=== PATIENT | female | born 1970 | race Caucasian/White ===

== ENCOUNTER 2017-09-16 21:35 | Emergency (ER) | payer SELFPAY ==
[~2017-09-16] VITALS: Ht 154.9 cm; Wt 61.2 kg
[2017-09-16 22:00] VITALS: BP 156/83
--- NOTE | 2017-09-16 22:16 | PHYS DOC ---
Past Medical History Past Medical History: Anxiety, Asthma, Bronchitis, Diabetes-Type II, High Cholesterol, Other Additional Past Medical Histor: ADHD Past Surgical History: Other Additional Past Surgical Histo: CARPAL TUNNEL RELEASES Alcohol Use: None Drug Use: None Adult General Chief Complaint Chief Complaint: ANKLE PROBLEM HPI HPI Patient is a 46 year old female presents to the emergency department with complaints of left foot pain. Patient states that she misstepped on some concrete and describes an inversion to the ankle. She states that for 8 days she has experienced pain and bruising in the distal foot. She's here today seeking evaluation. She does arrive to the emergency department fully weight- bearing. Review of Systems Review of Systems Constitutional: Denies fever or chills [] Eyes: Denies change in visual acuity, redness, or eye pain [] HENT: Denies nasal congestion or sore throat [] Respiratory: Denies cough or shortness of breath [] Cardiovascular: No additional information not addressed in HPI [] GI: Denies abdominal pain, nausea, vomiting, bloody stools or diarrhea [] : Denies dysuria or hematuria [] Musculoskeletal: left foot pain Integument: Denies rash or skin lesions [] Neurologic: Denies headache, focal weakness or sensory changes [] Endocrine: Denies polyuria or polydipsia [] Allergies Allergies Allergies Coded Allergies Type Severity Reaction Last Updated Verified No Known Drug Allergies 02/20/14 No Physical Exam Physical Exam Constitutional: Well developed, well nourished, no acute distress, non-toxic appearance. [] Cardiovascular:Heart rate regular rhythm, no murmur [] Lungs & Thorax: Bilateral breath sounds clear to auscultation [] Skin: Warm, dry, no erythema, no rash. [] Back: No tenderness, no CVA tenderness. [] Extremities:LLE: Left knee exam unremarkable. Left ankle without swelling without ecchymosis. She is mildly tender to palpate over the Achilles tendon which is intact. Left foot exam distal ecchymosis with diffuse tenderness. No obvious deformity. Neurovascular intact distally. Neurologic: Alert and oriented X 3, normal motor function, normal sensory function, no focal deficits noted. [] Psychologic: Affect normal, judgement normal, mood normal. [] Current Patient Data Vital Signs Vital Signs Date Time Temp Pulse Resp B/P (MAP) Pulse Ox O2 Delivery O2 Flow Rate FiO2 09/16/17 22:00 97.8 84 20 156/83 (107) 98 Room Air 97.8 EKG EKG [] Radiology/Procedures Radiology/Procedures Left Ankle x-ray without bony abnormality. Left Foot x-ray with fracture at the base of the fifth metatarsal, minimally displaced. Course & Med Decision Making Course & Med Decision Making Pertinent Labs and Imaging studies reviewed. (See chart for details) []She was placed in a postop shoe, crutches for weightbearing as tolerated. The injury is approximately 8-9 days old according to patient's history, she may utilize ibuprofen [id number] as labeled and is indicated for symptom management. She is advised to follow-up with surgical asst in 3-5 days. Dragon Disclaimer Dragon Disclaimer This electronic medical record was generated, in whole or in part, using a voice recognition dictation system. Departure Departure Impression: Primary Impression: Foot fracture, left Disposition: 01 HOME, SELF-CARE Condition: STABLE Referrals: NO PCP (PCP) [facility] Patient Instructions: Foot Fracture Additional Instructions: Crutches for weightbearing as tolerated. Postop shoe, please wear when ambulating. Follow-up with podiatry in 3-5 days, call for appointment. He may use [id number] ibuprofen or Naprosyn as labeled and is indicated for symptom management. Problem Qualifiers Primary Impression: Foot fracture, left Encounter type: initial encounter Fracture type: closed Qualified Codes: S92.902A - Unspecified fracture of left foot, initial encounter for closed fracture YOAN [place] APRN Sep 16, 2017 22:16
--- NOTE | 2017-09-17 09:05 | RAD ---
Left foot, 3 views, 09/16/2017: History: Fall, pain There is a transverse fracture of the proximal fifth metatarsal with slight distraction of the fracture fragments at the fracture site. No other fracture or dislocation is identified. There are mild degenerative changes at the first MTP joint IMPRESSION: Acute fracture of the proximal fifth metatarsal. Left ankle, 3 views, 09/16/2017: No additional fracture or dislocation is identified. There is mild soft tissue swelling laterally. IMPRESSION: No additional fracture is detected. Note: The findings were called to personnel in the [facility] ER at 9:01 AM on 09/17/2017.
== END 2017-09-16 22:50 | disposition home or self-care (01) ==
LOC: ER 21:35
DX: S92.352A Displaced fracture of fifth metatarsal bone, left foot, initial encounter for closed fracture (principal); F41.9 Anxiety disorder, unspecified; J45.909 Unspecified asthma, uncomplicated; E11.9 Type 2 diabetes mellitus without complications; E78.00 Pure hypercholesterolemia, unspecified; F90.9 Attention-deficit hyperactivity disorder, unspecified type; X58.XXXA Exposure to other specified factors, initial encounter; Y93.89 Activity, other specified; Y92.89 Other specified places as the place of occurrence of the external cause; Y99.8 Other external cause status
CPT/HCPCS: 73610; 73630; 99284

== ENCOUNTER 2020-05-21 21:17 | Observation (INO) | payer MEDICAID, OTHER ==
[~2020-05-21] VITALS: Ht 154.9 cm; Wt 61.2 kg
[2020-05-21] MEDS ORDERED: SIMETHICONE/SOD BICARB/CITRIC ACID PACKET. PO ONE (21:45)
--- NOTE | 2020-05-21 21:51 | PHYS DOC ---
Past Medical History Past Medical History: Anxiety, Asthma, Bronchitis, Diabetes-Type II, Fibr omyalgia, High Cholesterol, Other Additional Past Medical Histor: ADHD, NARROW ESOPHAGUS Past Surgical History: Other Additional Past Surgical Histo: CARPAL TUNNEL RELEASES Smoking Status: Current Every Day Smoker Alcohol Use: None Drug Use: None General Adult EDM: Chief Complaint: OTHER COMPLAINTS HPI: HPI: 49-year-old female past medical history esophageal food bolus presents with chief complaint of esophageal food bolus. Patient eating dinner prior to arrival suddenly unable to swallow. Patient was eating Nepali food beef with broccoli. Last obstruction was approximately 10 years ago. On exam patient spitting up saliva. Review of Systems: Review of Systems: Constitutional: Denies fever or chills. [] Eyes: Denies change in visual acuity. [] HENT: Denies nasal congestion or sore throat. [] Respiratory: Denies cough or shortness of breath. [] Cardiovascular: Denies chest pain or edema. [] GI: Positive esophageal food bolus : Denies dysuria. [] Musculoskeletal: Denies back pain or joint pain. [] Integument: Denies rash. [] Neurologic: Denies headache, focal weakness or sensory changes. [] Endocrine: Denies polyuria or polydipsia. [] Lymphatic: Denies swollen glands. [] Psychiatric: Denies depression or anxiety. [] Heart Score: Risk Factors: Risk Factors: DM, Current or recent (<one month) smoker, HTN, HLP, family h istory of CAD, obesity. Risk Scores: Score 0 - 3: 2.5% MACE over next 6 weeks - Discharge Home Score 4 - 6: 20.3% MACE over next 6 weeks - Admit for Clinical Observation Score 7 - 10: 72.7% MACE over next 6 weeks - Early Invasive Strategies Current Medications: Current Medications Medications (Trade) Dose Ordered Sig/Jessica Start Time Stop Time Status Last Admin Dose Admin Lorazepam (Ativan Inj) 1 mg 1X ONCE 05/21/20 21:45 05/21/20 21:46 UNV Simethicone/ Sodium Bicarb/ Citric Ac (E-Z-Gas) 1 packet 1X ONCE 05/21/20 21:45 05/21/20 21:46 DC 05/21/20 21:42 1 PACKET Allergies: Allergies: Allergies Coded Allergies Type Severity Reaction Last Updated Verified No Known Drug Allergies 02/20/14 No Physical Exam: PE: Constitutional: Well developed, well nourished, no acute distress, non-toxic appearance. [] HENT: Normocephalic, atraumatic, bilateral external ears normal, oropharynx moist, no oral exudates, nose normal. [] Eyes: PERRLA, EOMI, conjunctiva normal, no discharge. [] Neck: Normal range of motion, no tenderness, supple, no stridor. [] Cardiovascular:Heart rate regular rhythm, no murmur [] Lungs & Thorax: Bilateral breath sounds clear to auscultation [] Abdomen: Bowel sounds normal, soft, no tenderness, no masses, no pulsatile masses. [] Skin: Warm, dry, no erythema, no rash. [] Back: No tenderness, no CVA tenderness. [] Extremities: No tenderness, no cyanosis, no clubbing, ROM intact, no edema. [] Neurologic: Alert and oriented X 3, normal motor function, normal sensory function, no focal deficits noted. [] Psychologic: Affect normal, judgement normal, mood normal. [] Current Patient Data: Vital Signs: Vital Signs Date Time Temp Pulse Resp B/P (MAP) Pulse Ox O2 Delivery O2 Flow Rate FiO2 05/21/20 21:20 97.6 100 22 127/92 (104) 97 Room Air 97.6 EKG: EKG: [] Radiology/Procedures: Radiology/Procedures: [] Course & Med Decision Making: Course & Med Decision Making Pertinent Labs and Imaging studies reviewed. (See chart for details) [] Patient was evaluated for chief complaint. Patient was initially treated with EZ gas. Patient drank unable to tolerate.. Patient stated Valium had worked in the past. Formulary Valium here at [place] is only p.o. Used Ativan 1 mg initially with no improvement repeat dosed Ativan 2 mg again with no improvement. Patient also received glucagon 1 mg with no improvement. Second attempt with easy gas used and unsuccessful. Patient seems to be improved. She is not spitting up as much saliva compared to previous exam. Patient did tolerate sips of water without vomiting. Despite perceived improvements patient continues to states sensation of esophageal foreign body. Discussed patient with Dr Plummer @ 2320hrs. Patient admitted to the hospitalist. Chirag Disclaimer: Chirag Disclaimer: This electronic medical record was generated, in whole or in part, using a voice recognition dictation system. Departure Departure Impression: Primary Impression: Esophageal obstruction due to food impaction Disposition: ADMITTED INPATIENT Admitting Physician: BHANU Condition: STABLE Referrals: NO PCP (PCP) Justicifation of Admission Dx: Justifications for Admission: Justification of Admission Dx: Yes Comments: Esophageal foreign body ADALID MUNOZ I DO May 21, 2020 21:51
[2020-05-21] MEDS ORDERED: GLUCAGON,HUMAN RECOMBINANT 1 MG/ML VIAL. IV ONE (22:45)
[2020-05-21] MEDS ORDERED: ONDANSETRON PF 4 MG/2 ML VIAL. IV PRN (23:45)
[2020-05-22] VITALS (8 sets, daily range): BP systolic 93–119; BP diastolic 61–81
[2020-05-22] MEDS ORDERED: MORPHINE SULFATE 4 MG/ML VIAL. IV ONE (00:15)
[2020-05-22] MEDS ORDERED: MORPHINE SULFATE 4 MG/ML VIAL. ONE (00:22)
[2020-05-22 00:25] LABS: BASO % 1 % (0-3); EOS # 0.2 x10^3/uL (0.0-0.7); EOS % 2 % (0-3); HEMATOCRIT 41.7 % (36.0-47.0); HEMOGLOBIN 14.5 g/dL (12.0-15.5); LYMPH # 2.7 x10^3/uL (1.0-4.8); LYMPH % 36 % (24-48); MEAN CORPUSCULAR HEMOGLOBIN 33 pg (25-35); MEAN CORPUSCULAR HGB CONC 35 g/dL (31-37); MEAN CORPUSCULAR VOLUME 95 fL (79-100); MONO # 0.5 x10^3/uL (0.0-1.1); MONO % 6 % (0-9); NEUT % 55 % (31-73); PLATELET COUNT 422 x10^3/uL (140-400); RED CELL DISTRIBUTION WIDTH 11.8 % (11.5-14.5); WHITE BLOOD COUNT 7.4 x10^3/uL (4.0-11.0)
[2020-05-22 00:32] LABS: CALCIUM 9.5 mg/dL (8.5-10.1); CREATININE 0.8 mg/dL (0.6-1.0); GFR 75.9
--- NOTE | 2020-05-22 00:40 | NUR ---
Admit from ER. c/o pain between breasts, "that's where the beef and broccoli is stuck." Talking full sentences w/o dyspnea. Home meds are vague (Tylenol pm, Nortriptyline, Metformin, Atorvastatin and a blood pressure pill). Chart reports no PCP.
[2020-05-22 05:06] LABS: BASO % 0 % (0-3); EOS # 0.2 x10^3/uL (0.0-0.7); EOS % 3 % (0-3); HEMATOCRIT 38.3 % (36.0-47.0); HEMOGLOBIN 13.3 g/dL (12.0-15.5); LYMPH # 2.6 x10^3/uL (1.0-4.8); LYMPH % 35 % (24-48); MEAN CORPUSCULAR HEMOGLOBIN 33 pg (25-35); MEAN CORPUSCULAR HGB CONC 35 g/dL (31-37); MEAN CORPUSCULAR VOLUME 95 fL (79-100); MONO # 0.5 x10^3/uL (0.0-1.1); MONO % 7 % (0-9); NEUT # 4.2 x10^3/uL (1.8-7.7); NEUT % 56 % (31-73); PLATELET COUNT 342 x10^3/uL (140-400); RED BLOOD COUNT 4.04 x10^6/uL (3.50-5.40); RED CELL DISTRIBUTION WIDTH 12.1 % (11.5-14.5); WHITE BLOOD COUNT 7.6 x10^3/uL (4.0-11.0)
[2020-05-22 06:19] LABS: CALCIUM 8.9 mg/dL (8.5-10.1); CREATININE 0.7 mg/dL (0.6-1.0); GFR 88.6; POTASSIUM 3.9 mmol/L (3.5-5.1)
--- NOTE | 2020-05-22 08:30 | NUR ---
Outpatient by w/c for EGD.
[2020-05-22] MEDS ORDERED: PROPOFOL 10 MG/ML (20ML) VIAL. IV ONE (08:51)
[2020-05-22] MEDS ORDERED: LIDOCAINE 2% PF 5 ML VIAL. ONE (08:51)
--- NOTE | 2020-05-22 08:52 | PDOC2 ---
GI CONSULT Reason For Consult: esophageal food bolus HPI: HPI: 49 y/o female admitted through ER. Eating beef and broccoli last night around 8:00 p.m. - food got stuck in mid throat. Eventually able to cough that up but still feels like something stuck in epigastrium. At first unable to tolerate secretions but better now. H/o GERD long ago, now has "hiatal hernia" flares and takes Roz Millwood w/ melantonin PRN. Does not have frequent dysphagia - "just sometimes" with food. Had EGD ~10 years ago (can't remember where - ?[facility]) and was told "narrow esophagus" but no intervention or medication suggested. No n/v, diarrhea, constipation, or bleeding. Has gained a little weight w/ DM medication. No previous colonoscopy. No GB, liver, pancreas, or PUD history. No NSAIDs. Says supposed to get her health insurance card today. PMH: PMH: DM, HLD, asthma, bronchitis, ADHD, anxiety, DDD, GERD, hiatal hernia bilateral CTR and elbow surgeries FH: Family History: Other (spinal problems) Social History: Smoke: Quit ALCOHOL: occassional Drugs: None ROS: GEN: Denies fevers, chills, sweats HEENT: Denies blurred vision, sore throat CV: Denies chest pain RESP: Denies shortness of air, cough GI: Per HPI : Denies hematuria, dysuria ENDO: +weight gain NEURO: Denies confusion, dizziness MSK: Denies weakness, joint pain/swelling SKIN: Denies jaundice, pruritus Vitals: Vitals: Vital Signs Date Time Temp Pulse Resp B/P (MAP) Pulse Ox O2 Delivery O2 Flow Rate FiO2 05/22/20 07:15 98.1 88 18 96/71 (79) 98 Room Air 98.1 Labs: Labs: Laboratory Tests Test 05/21/20 19:30 05/22/20 04:15 White Blood Count 7.4 x10^3/uL (4.0-11.0) 7.6 x10^3/uL (4.0-11.0) Red Blood Count 4.40 x10^6/uL (3.50-5.40) 4.04 x10^6/uL (3.50-5.40) Hemoglobin 14.5 g/dL (12.0-15.5) 13.3 g/dL (12.0-15.5) Hematocrit 41.7 % (36.0-47.0) 38.3 % (36.0-47.0) Mean Corpuscular Volume 95 fL (79-100) 95 fL (79-100) Mean Corpuscular Hemoglobin 33 pg (25-35) 33 pg (25-35) Mean Corpuscular Hemoglobin Concent 35 g/dL (31-37) 35 g/dL (31-37) Red Cell Distribution Width 11.8 % (11.5-14.5) 12.1 % (11.5-14.5) Platelet Count 422 x10^3/uL (140-400) 342 x10^3/uL (140-400) Neutrophils (%) (Auto) 55 % (31-73) 56 % (31-73) Lymphocytes (%) (Auto) 36 % (24-48) 35 % (24-48) Monocytes (%) (Auto) 6 % (0-9) 7 % (0-9) Eosinophils (%) (Auto) 2 % (0-3) 3 % (0-3) Basophils (%) (Auto) 1 % (0-3) 0 % (0-3) Neutrophils # (Auto) 4.0 x10^3/uL (1.8-7.7) 4.2 x10^3/uL (1.8-7.7) Lymphocytes # (Auto) 2.7 x10^3/uL (1.0-4.8) 2.6 x10^3/uL (1.0-4.8) Monocytes # (Auto) 0.5 x10^3/uL (0.0-1.1) 0.5 x10^3/uL (0.0-1.1) Eosinophils # (Auto) 0.2 x10^3/uL (0.0-0.7) 0.2 x10^3/uL (0.0-0.7) Basophils # (Auto) 0.0 x10^3/uL (0.0-0.2) 0.0 x10^3/uL (0.0-0.2) Sodium Level 141 mmol/L (136-145) 141 mmol/L (136-145) Potassium Level 4.0 mmol/L (3.5-5.1) 3.9 mmol/L (3.5-5.1) Chloride Level 101 mmol/L (98-107) 103 mmol/L (98-107) Carbon Dioxide Level 29 mmol/L (21-32) 27 mmol/L (21-32) Anion Gap 11 (6-14) 11 (6-14) Blood Urea Nitrogen 12 mg/dL (7-20) 13 mg/dL (7-20) Creatinine 0.8 mg/dL (0.6-1.0) 0.7 mg/dL (0.6-1.0) Estimated GFR (Cockcroft-Gault) 75.9 88.6 Glucose Level 142 mg/dL (70-99) 113 mg/dL (70-99) Calcium Level 9.5 mg/dL (8.5-10.1) 8.9 mg/dL (8.5-10.1) Allergies: Coded Allergies: No Known Drug Allergies (Unverified , 02/20/14) Medications: Current Medications Medications (Trade) Dose Ordered Sig/Jessica Route PRN Reason Start Time Stop Time Status Last Admin Dose Admin Simethicone/ Sodium Bicarb/ Citric Ac (E-Z-Gas) 1 packet 1X ONCE PO 05/21/20 21:45 05/21/20 21:46 DC 05/21/20 21:42 Lorazepam (Ativan Inj) 1 mg 1X ONCE IVP 05/21/20 21:45 05/21/20 22:01 DC 05/21/20 21:54 Glucagon (Glucagen) 1 mg 1X ONCE IV 05/21/20 22:45 05/21/20 22:46 DC 05/21/20 22:40 Lorazepam (Ativan Inj) 2 mg 1X ONCE IVP 05/21/20 22:45 05/21/20 22:46 DC 05/21/20 22:40 Ondansetron HCl (Zofran) 4 mg PRN Q8HRS PRN IV NAUSEA/VOMITING 05/21/20 23:45 05/22/20 23:44 05/22/20 00:23 Morphine Sulfate (Morphine Sulfate) 4 mg 1X ONCE IV 05/22/20 00:15 05/22/20 00:51 DC 7/1/20 00:24 Imaging: Imaging: - PE: GEN: NAD HEENT: Atraumatic, PERRL LUNGS: CTAB HEART: RRR ABD: NABS, S/ND, epigastric discomfort EXTREMITY: No edema SKIN: No rashes, no jaundice NEURO/PSYCH: A & O 3 A/P: A/P: Food bolus, epigastric discomfort, globus GERD, h/o dysphagia CRC screen - none -- EGD w/ possible disimpaction/dilation this morning. PPI. Outpt screening colonoscopy. ALLA MIJARES May 22, 2020 08:52
[2020-05-22] MEDS ORDERED: IV RINGERS,LACTATED 1000ML 1,000 ML IV ONE (09:15)
--- NOTE | 2020-05-22 09:53 | PDOC4 ---
Operative Note Operative Note EGD with foreign body removal Meds propofol per anesthesia Pre-op dx dysphagia/hx esophageal stricture/meat impaction Post--op dx hiatal hernia retained food bolus s/p extraction esophageal stricture Plan resume diet and release home if tolerates prilosec 20 mg daily for 2 months-script written EGD with dilation in 2 weeks and screening colonoscopy at that time as well. JAVON KARIMI MD May 22, 2020 09:53
--- NOTE | 2020-05-22 10:15 | NUR ---
SW following. Discussed with RN, pt from home, room air, NPO for EGD. HCFS following for self pay status. RN advised no SW needs, anticipates pt will discharge home after EGD. SW will continue to follow should any discharge needs arise.
[2020-05-22] MEDS ORDERED: PANTOPRAZOLE IV PUSH 40 MG VIAL. IVP SCH (10:30)
--- NOTE | 2020-05-22 10:45 | NUR ---
Returned from Outpatient by w/c. No c/o at this time. Took sips H2O easily. Resumed diet. VS stable.
[2020-05-22] MEDS ORDERED: Pantoprazole Iv Push IVP (11:45)
--- NOTE | 2020-05-22 12:00 | NUR ---
Missing flip flop shoes from ER. Unable to find.
--- NOTE | 2020-05-22 12:45 | DS ---
DATE OF DISCHARGE: 05/22/2020 ADMISSION DIAGNOSIS: Esophageal food bolus impaction. DISCHARGE DIAGNOSIS: Resolving esophageal food bolus impaction (she went for an EGD). HOSPITAL COURSE: The patient is a pleasant 49-year-old female who presented with food stuck in her esophagus. She was admitted. We consulted GI. This morning, she went for an EGD. Now, she is doing great. I saw her and examined her. PHYSICAL EXAMINATION: HEART: Tones are normal. LUNGS: Clear. ABDOMEN: Soft. We plan to discharge. DISPOSITION: Home. ACTIVITY: As tolerated. DIET: Low sodium. MEDICATIONS: Please see MRAD. TOTAL TIME: 33 minutes. DEBBIEL Shanelle DIAS DO DR: MIHIR/paige JOB#: [id number] / [id number]
[2020-05-22] MEDS ORDERED: PANT40GR PO (13:01)
[2020-05-22] MEDS ORDERED: PANT20TA2 PO (13:02)
--- NOTE | 2020-05-22 13:20 | NUR ---
Discharge instructions given with prescription. Answered questions and concerns. Verbalized understanding. here to take her home.
== END 2020-05-22 13:20 | disposition home or self-care (01) ==
LOC: ER 21:17 → 4 NORTH 23:33
PROVIDERS: ADMIT Internal Medicine; ATTEND Internal Medicine
DX: T18.128A Food in esophagus causing other injury, initial encounter (principal); K22.2 Esophageal obstruction; E11.9 Type 2 diabetes mellitus without complications; E78.00 Pure hypercholesterolemia, unspecified; E78.5 Hyperlipidemia, unspecified; F41.9 Anxiety disorder, unspecified; J45.909 Unspecified asthma, uncomplicated; K44.9 Diaphragmatic hernia without obstruction or gangrene; K21.9 Gastro-esophageal reflux disease without esophagitis; F90.9 Attention-deficit hyperactivity disorder, unspecified type; X58.XXXA Exposure to other specified factors, initial encounter; Y93.89 Activity, other specified; Y92.89 Other specified places as the place of occurrence of the external cause; Y99.8 Other external cause status
CPT/HCPCS: 36415; 43247; 80048; 82962; 85025; 96374; 96375; 96376; 99284; C9113; G0378; J1610; J2060; J2270; J2405; J2704; J3490; J7120; G0379

== ENCOUNTER → 2020-06-10 | Outpatient (CLI) | payer OTHER ==
[2020-05-22 13:09] VITALS: BP 100/70
[~2020-06-10] MED LIST: PANT20TA2 PO; PANT40GR PO; Pantoprazole Iv Push IVP
== END | disposition home or self-care (01) ==
LOC: LAB 14:24
PROVIDERS: ATTEND Internal Medicine Gastroenterology
DX: Z01.818 Encounter for other preprocedural examination (principal); Z11.59 Encounter for screening for other viral diseases
CPT/HCPCS: U0003-CS

== ENCOUNTER → 2020-06-14 | Day surgery (SDC) | payer MEDICAID, OTHER ==
[~2020-06-14] MED LIST changes: +ATOR40TA59 PO; +GLIM2TAB7 PO; +IV RINGERS,LACTATED 1000ML 1,000 ML IV SCH; +LIDOCAINE 2% PF 5 ML VIAL. ONE; +LISI-334 PO; +METF10007 PO; +NORT25CA PO; +PROPOFOL 10 MG/ML (20ML) VIAL. IV ONE
[2020-06-14 10:30] VITALS: BP 92/66
== END | disposition home or self-care (01) ==
LOC: ENDOS 08:33
PROVIDERS: ATTEND Internal Medicine Gastroenterology
DX: Z12.11 Encounter for screening for malignant neoplasm of colon (principal); K64.0 First degree hemorrhoids; K22.2 Esophageal obstruction; Z79.899 Other long term (current) drug therapy
CPT/HCPCS: 43450; 45378; J2704

== ENCOUNTER 2020-12-26 14:52 | Emergency (ER) | payer OTHER ==
[~2020-12-26] VITALS: Ht 154.9 cm; Wt 60.0 kg
[~2020-12-26 14:52] MED LIST changes: -IV RINGERS,LACTATED 1000ML 1,000 ML IV SCH; -LIDOCAINE 2% PF 5 ML VIAL. ONE; -LISI-334 PO; +LISI20TA18 PO; -PROPOFOL 10 MG/ML (20ML) VIAL. IV ONE
[2020-12-26 14:58] VITALS: BP 148/79
[2020-12-26] MEDS ORDERED: HYDR-2761 PO (15:13)
[2020-12-26] MEDS ORDERED: AMOX875T PO (15:13)
[2020-12-26] MEDS ORDERED: NAPR-514 PO (15:13)
--- NOTE | 2020-12-26 15:14 | PHYS DOC ---
Past Medical History Past Medical History: Anxiety, Asthma, Bipolar, Bronchitis, Diabetes-Type II, Fibromyalgia, High Cholesterol, Other Additional Past Medical Histor: ADHD, NARROW ESOPHAGUS, "STRESS BLADDER", NECK HERNIATION Past Surgical History: Other Additional Past Surgical Histo: CARPAL TUNNEL RELEASES Smoking Status: Former Smoker Alcohol Use: None Drug Use: None General Adult EDM: Chief Complaint: DENTAL PROBLEM HPI: HPI: Patient is a 50 year old female who presents to the ED today complaining of moderate right upper gum dental pain, symptoms for 2 to 3 days. Denies any fever. States she does not have a dentist, attempted to call the PCP and they sent her to the ED. Review of Systems: Review of Systems: Constitutional: Denies fever or chills. [] Eyes: Denies change in visual acuity. [] HENT: Reports right upper gum dental pain. Denies nasal congestion or sore throat. [] Musculoskeletal: Denies back pain or joint pain. [] Integument: Denies rash. [] Neurologic: Denies headache, focal weakness or sensory changes. [] Psychiatric: Denies depression or anxiety. [] Heart Score: Risk Factors: Risk Factors: DM, Current or recent (<one month) smoker, HTN, HLP, family histo ry of CAD, obesity. Risk Scores: Score 0 - 3: 2.5% MACE over next 6 weeks - Discharge Home Score 4 - 6: 20.3% MACE over next 6 weeks - Admit for Clinical Observation Score 7 - 10: 72.7% MACE over next 6 weeks - Early Invasive Strategies Allergies: Allergies: Allergies Coded Allergies Type Severity Reaction Last Updated Verified No Known Drug Allergies 06/14/20 No Physical Exam: PE: Constitutional: Well developed, well nourished, no acute distress, non-toxic appearance. [] HENT: Normocephalic, atraumatic, bilateral external ears normal, oropharynx moist, no oral exudates, nose normal. [] Only 2 teeth left on the right upper gum. With 2 teeth left one is roughly tooth #6 on the abdominal tooth #8. Tooth #6 is capped but appears to have decay around the cup. Tooth #8 is broken and decayed. No gum erythema. Skin: Warm, dry, no erythema, no rash. [] Back: No tenderness, no CVA tenderness. [] Extremities: No tenderness, no cyanosis, no clubbing, ROM intact, no edema. [] Neurologic: Alert and oriented X 3, normal motor function, normal sensory function, no focal deficits noted. [] Psychologic: Affect normal, judgement normal, mood normal. [] Current Patient Data: Vital Signs: Vital Signs Date Time Temp Pulse Resp B/P (MAP) Pulse Ox O2 Delivery O2 Flow Rate FiO2 12/26/20 14:58 98.2 79 12 148/79 (102) 100 Room Air 98.2 EKG: EKG: [] Radiology/Procedures: Radiology/Procedures: [] Course & Med Decision Making: Course & Med Decision Making Pertinent Labs and Imaging studies reviewed. (See chart for details) This is a 50-year-old female patient presented to the ED today with dental pain. Patient did amoxicillin naproxen and hydrocodone. Follow-up with a dentist in 1 to 3 weeks Chirag Disclaimer: Chirag Disclaimer: This electronic medical record was generated, in whole or in part, using a voice recognition dictation system. Departure Departure Impression: Primary Impression: Dentalgia Additional Impression: Dental infection Disposition: 01 HOME SELF CARE/HOMELESS Condition: STABLE Referrals: HANDY FUENTES DO (PCP) follow up with your doctor in 1-2 weeks Patient Instructions: Dental Pain, [id number] Additional Instructions: You have dental infection. Take the prescribed antibiotics until completed. Take the pain medicine as needed. Follow-up with your dentist as soon as you can Scripts Hydrocodone Bit/Acetaminophen (HYDROCODONE-APAP 5-325 ) 1 Tab Tablet 1 TAB PO PRN Q6HRS PRN for PAIN, #14 TAB 0 Refills Prov: LIDNA DENIS APRN 12/26/20 Amoxicillin (AMOXICILLIN) 875 Mg Tablet 1 TAB PO BID, #20 TAB Prov: SAIDAALINDA RETIREMENT ASSISTANT 12/26/20 Naproxen (NAPROXEN) 500 Mg Tablet 1 TAB PO BID for pain, #14 TAB 0 Refills Prov: LINDA DENIS APRN 12/26/20 LINDA DENIS APRN Dec 26, 2020 15:14
== END 2020-12-26 15:29 | disposition home or self-care (01) ==
LOC: ER 14:52
DX: K04.7 Periapical abscess without sinus (principal); F31.9 Bipolar disorder, unspecified; J45.909 Unspecified asthma, uncomplicated; E11.9 Type 2 diabetes mellitus without complications; E78.00 Pure hypercholesterolemia, unspecified; F90.9 Attention-deficit hyperactivity disorder, unspecified type; Z87.891 Personal history of nicotine dependence
CPT/HCPCS: 99283

== ENCOUNTER 2021-04-17 21:58 | Emergency (ER) | payer OTHER ==
[~2021-04-17] VITALS: Ht 154.9 cm; Wt 59.1 kg
[~2021-04-17 21:58] MED LIST changes: +AMOX875T PO; +HYDR-2761 PO; +NAPR-514 PO
[2021-04-17 22:13] VITALS: BP 147/71
[2021-04-17] MEDS ORDERED: SODIUM PHOSPHATES 19/7GM 133 ML ENEMA. ONE (22:43)
[2021-04-17] MEDS ORDERED: SODIUM PHOSPHATES 19/7GM 133 ML ENEMA. PR ONE (23:00)
--- NOTE | 2021-04-17 23:07 | PHYS DOC ---
Past Medical History Past Medical History: Anxiety, Asthma, Bipolar, Bronchitis, Diabetes-Type II, Fibromyalgia, High Cholesterol, Other Additional Past Medical Histor: ADHD, NARROW ESOPHAGUS, "STRESS BLADDER", NECK HERNIATION Past Surgical History: Other Additional Past Surgical Histo: CARPAL TUNNEL RELEASES Smoking Status: Former Smoker Alcohol Use: None Drug Use: None General Adult EDM: Chief Complaint: CONTISPATION HPI: HPI: Patient is a 50 year old female who presents the ED today complaining of constipation. Patient states she had a partial hysterectomy in February. She states she has been struggling with constipation on and off since then. She states she has tried uosq-wxi-khzdenf MiraLAX, mag citrate, Dulcolax E TC with minimal relief. She states she has not tried any enema. She states she feels like she is impacted with stool. She states today she had small amount of bowel movement. She reports history of hemorrhoids as well. Denies any abdominal pain, nausea or vomiting. Review of Systems: Review of Systems: Constitutional: Denies fever or chills. [] Eyes: Denies change in visual acuity. [] HENT: Denies nasal congestion or sore throat. [] Respiratory: Denies cough or shortness of breath. [] Cardiovascular: Denies chest pain or edema. [] GI: Reports constipation, denies any abdominal pain, nausea, vomiting, bloody stools or diarrhea. [] : Denies dysuria. [] Musculoskeletal: Denies back pain or joint pain. [] Integument: Denies rash. [] Neurologic: Denies headache, focal weakness or sensory changes. [] Psychiatric: Denies depression or anxiety. [] Heart Score: C/O Chest Pain: N/A Risk Factors: Risk Factors: DM, Current or recent (<one month) smoker, HTN, HLP, family history of CAD, obesity. Risk Scores: Score 0 - 3: 2.5% MACE over next 6 weeks - Discharge Home Score 4 - 6: 20.3% MACE over next 6 weeks - Admit for Clinical Observation Score 7 - 10: 72.7% MACE over next 6 weeks - Early Invasive Strategies Current Medications: Current Medications Medications (Trade) Dose Ordered Sig/Jessica Start Time Stop Time Status Last Admin Dose Admin Sodium Monofluorophosphate (Fleet Adult) 133 ml 1X ONCE 04/17/21 23:00 04/17/21 23:01 Allergies: Allergies: Allergies Coded Allergies Type Severity Reaction Last Updated Verified No Known Drug Allergies 06/14/20 No Physical Exam: PE: Constitutional: Well developed, well nourished, no acute distress, non-toxic a ppearance. [] HENT: Normocephalic, atraumatic, bilateral external ears normal, oropharynx moist, no oral exudates, nose normal. [] Eyes: PERRLA, EOMI, conjunctiva normal, no discharge. [] Neck: Normal range of motion, no tenderness, supple, no stridor. [] Cardiovascular:Heart rate regular rhythm, no murmur [] Lungs & Thorax: Bilateral breath sounds clear to auscultation [] Abdomen: Bowel sounds normal, soft, no tenderness, no masses, no pulsatile masses. [] Skin: Warm, dry, no erythema, no rash. [] Back: No tenderness, no CVA tenderness. [] Extremities: No tenderness, no cyanosis, no clubbing, ROM intact, no edema. [] Neurologic: Alert and oriented X 3, normal motor function, normal sensory function, no focal deficits noted. [] Psychologic: Affect normal, judgement normal, mood normal. [] EKG: EKG: [] Radiology/Procedures: Radiology/Procedures: [] Course & Med Decision Making: Course & Med Decision Making Pertinent Labs and Imaging studies reviewed. (See chart for details) This is a 50-year-old female patient presenting to the ED today with constipation. Patient had a small bowel movement prior to coming to the ED. She feels impacted. She had a partial hysterectomy in February and was on pain medicine and this started the constipation. She has been using lvap-qle-tzkcwjk oral medicines with no relief. Patient arrived in the ED and had a bowel movement on her own. She did have to decrease some of it out but was successful. Discharge to home. She is currently not on any pain medicine. Encourage to follow a bowel regimen including increasing dietary fiber intake, water intake, avoiding pain medicine, OTC constipation medicines also recommended Chirag Disclaimer: Chirag Disclaimer: This electronic medical record was generated, in whole or in part, using a voice recognition dictation system. Departure Departure Impression: Primary Impression: Constipation Qualified Codes: K59.00 - Constipation, unspecified Disposition: HOME / SELF CARE / HOMELESS Condition: STABLE Referrals: HANDY FUENTES DO (PCP) follow up next week Patient Instructions: Constipation, Adult Additional Instructions: You were seen for constipation. Please follow-up with your primary care doctor in 1 to 2 weeks. Avoid taking any pain medicine except Tylenol or Motrin. Increase your dietary fiber intake as well as your water intake. Use pzld-fnk-gxpxrjv remedies for constipation especially MiraLAX every day and the docusate sodium. Also consider using mag citrate and an enema/suppository anytime you are constipated LINDA DENIS APRN April 17, 2021 23:07
== END 2021-04-17 23:10 | disposition home or self-care (01) ==
LOC: ER 21:58
DX: K59.00 Constipation, unspecified (principal); F41.9 Anxiety disorder, unspecified; J45.909 Unspecified asthma, uncomplicated; F31.9 Bipolar disorder, unspecified; E11.9 Type 2 diabetes mellitus without complications; M79.7 Fibromyalgia; E78.00 Pure hypercholesterolemia, unspecified; F90.9 Attention-deficit hyperactivity disorder, unspecified type
CPT/HCPCS: 99282

== ENCOUNTER 2022-03-08 21:09 | Emergency (ER) | payer OTHER ==
[~2022-03-08] VITALS: Ht 154.9 cm; Wt 62.7 kg
[2022-03-08 22:14] LABS: BASO # 0.1 x10^3/uL (0.0-0.2); BASO % 1 % (0-3); EOS # 0.4 x10^3/uL (0.0-0.7); EOS % 6 % (0-3); HEMATOCRIT 43.5 % (36.0-47.0); HEMOGLOBIN 14.7 g/dL (12.0-15.5); LYMPH # 2.4 x10^3/uL (1.0-4.8); LYMPH % 32 % (24-48); MEAN CORPUSCULAR HEMOGLOBIN 30 pg (25-35); MEAN CORPUSCULAR HGB CONC 34 g/dL (31-37); MEAN CORPUSCULAR VOLUME 89 fL (79-100); MONO # 0.5 x10^3/uL (0.0-1.1); MONO % 6 % (0-9); NEUT # 4.2 x10^3/uL (1.8-7.7); NEUT % 56 % (31-73); PLATELET COUNT 385 x10^3/uL (140-400); WHITE BLOOD COUNT 7.5 x10^3/uL (4.0-11.0)
[2022-03-08 22:24] LABS: CALCIUM 9.3 mg/dL (8.5-10.1); CREATININE 0.7 mg/dL (0.6-1.0); GFR 87.9; POTASSIUM 3.8 mmol/L (3.5-5.1)
[2022-03-08 22:30] LABS: ALBUMIN 3.8 g/dL (3.4-5.0); ALBUMIN/GLOBULIN RATIO 1.1 (1.0-1.7); TOTAL BILIRUBIN 0.3 mg/dL (0.2-1.0); TOTAL PROTEIN 7.4 g/dL (6.4-8.2)
--- NOTE | 2022-03-08 22:33 | RAD ---
Exam: CT head and face INDICATION: Trigeminal nerve paresthesias, left side TECHNIQUE: Sequential axial images through the head and face were obtained without the administration of IV contrast. Exposure: One or more of the following in the visualized dose reduction techniques were utilized for this examination: 1. Automated exposure control 2. Adjustment of the MA and/or KV according to patient size 3. Use of iterative of reconstructive technique Comparisons: None FINDINGS: Head: No focal parenchymal lesion or hemorrhage is identified. There is no midline shift or sulcal effaceme nt. No acute vascular territory infarction is identified. Ortiz-white distinction is preserved. The ventricular system is within normal limits without compression hydrocephalus. The basal cisterns are well maintained. Face: The visualized portions of the paranasal sinuses and mastoid air cells are well-pneumatized. No acute fractures. Globes and intraorbital contents are normal. IMPRESSION: 1. No acute intracranial abnormality. 2. No acute traumatic injury at the face. Electronically signed by: Luz Clemons MD (03/08/2022 10:31 PM) TOM
[2022-03-08 22:49] VITALS: BP 112/70
--- NOTE | 2022-03-08 23:04 | PHYS DOC ---
Past Medical History Past Medical History: Anxiety, Asthma, Bipolar, Bronchitis, Diabetes-Type II, Fibromyalgia, High Cholesterol, Other Additional Past Medical Histor: Tinnitus Past Surgical History: No Surgical History Additional Past Surgical Histo: CARPAL TUNNEL RELEASES, Smoking Status: Never Smoker Alcohol Use: Occasionally Drug Use: None Adult General Chief Complaint Chief Complaint: NEURO SYMPTOMS/DEFICITS HPI HPI The patient is a 51-year-old female with a history of hypertension, hyperlipidemia and kzj-wgngqsv-sjeabljiy diabetes. She presents for evaluation of mildly diminished sensation to her left face over the V2 and V3 distributions of the trigeminal nerve. She states symptoms had onset about 2 months ago and have been intermittent since then but over the past 24 hours patient has had more persistent numbness to her left face so she elected emergency department evaluation. States that in all other ways symptoms are the same as they have been but that typically she has had episodes of numbness lasting a few minutes to a couple of hours prior to this episode. Patient denies any other focal or specific symptoms and specifically denies fevers, nausea or vomiting, headache, focal or lateralizing weakness anywhere, numbness or tingling anywhere aside from to the left lower face, neck stiffness/pain/meningismus, vision changes, recent injury or trauma to her head, shortness of breath or chest pain of any kind, abdominal pain of any kind. Vital signs and blood glucose are appropriate here and the patient is in no acute distress. She ambulated in with a narrow, steady, non-ataxic gait. Review of Systems Review of Systems A 12 point review of systems was completed and was negative except where noted in HPI above. Allergies Allergies Allergies Coded Allergies Type Severity Reaction Last Updated Verified azithromycin Allergy Unknown 03/08/22 Yes dulaglutide Allergy Unknown 03/08/22 Yes Physical Exam Physical Exam 51-year-old female appearing nontoxic and in no acute distress. Head is normocephalic and atraumatic. Neck is supple and nontender. Patient ranges neck fully in all dimensions without discomfort or distress and there is no stiffness/rigidity/meningismus seen. Kernig's and Brudzinski's are negative. Oropharynx is moist. Lungs are clear to auscultation at all stations. There is a normal S1 and S2 without rubs or gallops and capillary refill is appropriate, less than 2 seconds globally. Abdomen is soft, nontender and nondistended. Skin is warm and dry without cyanosis, clubbing or edema. Psychiatrically, the patient demonstrates appropriate mood and affect and is alert. Neurologically, there is mildly diminished sensation to light touch to the left maxillary and mandibular face only. Patient can sense light touch and two-point discrimination appears intact to the area that is affected, but sensation is less than what it is on the corresponding right side. Otherwise, cranial nerves II through XII are intact and there are no lateralizing deficits seen. Speech is normal. Language is normal. Coordination is normal. There is no dysmetria with finger-nose or pfny-kw-pxry bilaterally. Strength is 5-5 in all joints of bilateral upper and lower extremities. Sensation is intact light touch in bilateral upper and lower extremities. Patient ambulates with a narrow, steady, non-ataxic gait here in the emergency department and is alert and oriented x4. Current Patient Data Vital Signs Vital Signs Date Time Temp Pulse Resp B/P (MAP) Pulse Ox O2 Delivery O2 Flow Rate FiO2 03/08/22 22:49 77 112/70 (84) 98 Room Air 03/08/22 21:10 98.7 18 98.7 Lab Values Laboratory Tests Test 03/08/22 21:17 03/08/22 22:00 Glucose (Fingerstick) 229 mg/dL (70-99) H White Blood Count 7.5 x10^3/uL (4.0-11.0) Red Blood Count 4.90 x10^6/uL (3.50-5.40) Hemoglobin 14.7 g/dL (12.0-15.5) Hematocrit 43.5 % (36.0-47.0) Mean Corpuscular Volume 89 fL (79-100) Mean Corpuscular Hemoglobin 30 pg (25-35) Mean Corpuscular Hemoglobin Concent 34 g/dL (31-37) Red Cell Distribution Width 13.0 % (11.5-14.5) Platelet Count 385 x10^3/uL (140-400) Neutrophils (%) (Auto) 56 % (31-73) Lymphocytes (%) (Auto) 32 % (24-48) Monocytes (%) (Auto) 6 % (0-9) Eosinophils (%) (Auto) 6 % (0-3) H Basophils (%) (Auto) 1 % (0-3) Neutrophils # (Auto) 4.2 x10^3/uL (1.8-7.7) Lymphocytes # (Auto) 2.4 x10^3/uL (1.0-4.8) Monocytes # (Auto) 0.5 x10^3/uL (0.0-1.1) Eosinophils # (Auto) 0.4 x10^3/uL (0.0-0.7) Basophils # (Auto) 0.1 x10^3/uL (0.0-0.2) Sodium Level 139 mmol/L (136-145) Potassium Level 3.8 mmol/L (3.5-5.1) Chloride Level 101 mmol/L (98-107) Carbon Dioxide Level 28 mmol/L (21-32) Anion Gap 10 (6-14) Blood Urea Nitrogen 12 mg/dL (7-20) Creatinine 0.7 mg/dL (0.6-1.0) Estimated GFR (Cockcroft-Gault) 87.9 BUN/Creatinine Ratio 17 (6-20) Glucose Level 191 mg/dL (70-99) H Calcium Level 9.3 mg/dL (8.5-10.1) Total Bilirubin 0.3 mg/dL (0.2-1.0) Aspartate Amino Transferase (AST) 17 U/L (15-37) Alanine Aminotransferase (ALT) 56 U/L (14-59) Alkaline Phosphatase 96 U/L (46-116) Total Protein 7.4 g/dL (6.4-8.2) Albumin 3.8 g/dL (3.4-5.0) Albumin/Globulin Ratio 1.1 (1.0-1.7) Laboratory Tests 03/08/22 22:00 Laboratory Tests 03/08/22 22:00 EKG EKG [] Radiology/Procedures Radiology/Procedures [] Course & Med Decision Making Course & Med Decision Making Well-appearing 51-year-old female presenting for acute on chronic mild paresthesia to the left maxillary and mandibular face over the V2 and V3 distributions. Symptoms have been present for a couple of months intermittently. Case discussed in detail with Dr. Alex of neurology who recommends CT head and maxillofacial region to rule out mass occupying lesion as a source for symptoms. From his standpoint, if this work-up is reassuring, the patient may safely be discharged to follow-up closely with primary care with a plan to obtain an MRI of the brain in the next 1 to 2 weeks and to follow-up with neurology over that interval as well. Patient is in agreement with this plan. 2250: Basic labs, CT head and CT maxillofacial without evidence of mass lesion or other acute process. Patient well-appearing and in no acute distress on serial reassessments. Will discharge home as per plan above. Patient is to follow-up with primary in the next 1 to 2 days and to call for an appointment to see neurology in the next 1 to 2 weeks. She understands that if she feels worse instead of better or develops other new symptoms of concern that she should return to the emergency department right away for reevaluation. All questions have been answered. Dragon Disclaimer Dragon Disclaimer This electronic medical record was generated, in whole or in part, using a voice recognition dictation system. Departure Departure Impression: Primary Impression: Facial paresthesia Disposition: HOME / SELF CARE / HOMELESS Condition: STABLE Referrals: HANDY FUENTES DO (PCP) SHAYY ALEX MD Patient Instructions: Paresthesia Additional Instructions: Follow-up very closely with your primary care doctor in the office in the next 1 to 2 days for reevaluation of your symptoms and a discussion of next best steps in care. Labs and CT imaging did not show any problems today. Our neurologist, Dr. Alex, recommends that your primary doctor order an MRI of your brain given recurrent episodes of left facial numbness over the past couple of months. He would also like you to see him or another neurologist of your choice in the office in follow-up of this issue. Please call the neurology clinic to schedule a follow-up appointment. Return to the emergency department right away for worsening symptoms of any kind or with any other new symptoms of concern. EFREN STAHL MD Mar 08, 2022 23:04
== END 2022-03-08 23:10 | disposition home or self-care (01) ==
LOC: ER 21:09
DX: R20.2 Paresthesia of skin (principal); J45.909 Unspecified asthma, uncomplicated; F31.9 Bipolar disorder, unspecified; E11.9 Type 2 diabetes mellitus without complications; E78.00 Pure hypercholesterolemia, unspecified; Z88.1 Allergy status to other antibiotic agents; Z88.8 Allergy status to other drugs, medicaments and biological substances
CPT/HCPCS: 36415; 70450; 70486; 80053; 82962; 85025; 99284-25

== ENCOUNTER 2022-03-25 14:42 | Emergency (ER) | payer OTHER ==
[~2022-03-25] VITALS: Ht 154.9 cm; Wt 62.1 kg
[2022-03-25 14:45] VITALS: BP 129/63
--- NOTE | 2022-03-25 15:26 | RAD ---
Single view chest dated 03/25/2022 3:23 PM: COMPARISON: None Clinical Indication: Cough. Findings: Single upright portable exam of the chest was performed. Heart size and mediastinal contours are with in normal limits. Lungs are clear. No consolidation or pleural effusion. No pneumothorax. IMPRESSION: No acute radiographic abnormality. Electronically signed by: Los Boykin MD (03/25/2022 3:24 PM) JACK
[2022-03-25 15:34] LABS: INFLUENZA A PATIENT NEGATIVE (NEGATIVE); INFLUENZA B PATIENT NEGATIVE (NEGATIVE)
[2022-03-25] MEDS ORDERED: GUAI600T47 PO (16:07)
--- NOTE | 2022-03-25 16:08 | PHYS DOC ---
Past Medical History Past Medical History: Anxiety, Asthma, Bipolar, Bronchitis, Diabetes-Type II, Fibromyalgia, High Cholesterol, Other Additional Past Medical Histor: spinal stenosis, "inverted cervical spine" Past Surgical History: Hysterectomy, Other Additional Past Surgical Histo: CARPAL TUNNEL RELEASES, Smoking Status: Never Smoker Alcohol Use: Occasionally Drug Use: None General Adult EDM: Chief Complaint: SORE THROAT HPI: HPI: Patient is a 51 year old female with a history of diabetes type 2, high cholesterol, fibromyalgia, bipolar, anxiety, bronchitis, presented to the ED today complaining of sore throat, cough, postnasal drip symptoms of been going on since yesterday. Patient denies any fever. Denies any chest pain or shortness of breath. Review of Systems: Review of Systems: Constitutional: Reports body aches, denies fever Eyes: Denies change in visual acuity. [] HENT: Reports nasal congestion and sore throat Respiratory: Reports cough, denies shortness of breath. [] Cardiovascular: Denies chest pain or edema. [] GI: Denies abdominal pain, nausea, vomiting, bloody stools or diarrhea. [] : Denies dysuria. [] Musculoskeletal: Denies back pain or joint pain. [] Integument: Denies rash. [] Neurologic: Denies headache, focal weakness or sensory changes. [] [] Psychiatric: Denies depression or anxiety. [] Heart Score: C/O Chest Pain: N/A Risk Factors: Risk Factors: DM, Current or recent (<one month) smoker, HTN, HLP, family histo ry of CAD, obesity. Risk Scores: Score 0 - 3: 2.5% MACE over next 6 weeks - Discharge Home Score 4 - 6: 20.3% MACE over next 6 weeks - Admit for Clinical Observation Score 7 - 10: 72.7% MACE over next 6 weeks - Early Invasive Strategies Allergies: Allergies: Allergies Coded Allergies Type Severity Reaction Last Updated Verified azithromycin Allergy Unknown 03/08/22 Yes dulaglutide Allergy Unknown 03/08/22 Yes Physical Exam: PE: Constitutional: Well developed, well nourished, no acute distress, non-toxic appearance. [] HENT: Normocephalic, atraumatic, bilateral external ears normal, oropharynx moist, no oral exudates, nose normal. [] Eyes: PERRLA, EOMI, conjunctiva normal, no discharge. [] Neck: Normal range of motion, no tenderness, supple, no stridor. [] Cardiovascular:Heart rate regular rhythm, no murmur [] Lungs & Thorax: Bilateral breath sounds clear to auscultation [] Abdomen: Bowel sounds normal, soft, no tenderness, no masses, no pulsatile masses. [] Skin: Warm, dry, no erythema, no rash. [] Back: No tenderness, no CVA tenderness. [] Extremities: No tenderness, no cyanosis, no clubbing, ROM intact, no edema. [] Neurologic: Alert and oriented X 3, normal motor function, normal sensory function, no focal deficits noted. [] Psychologic: Affect normal, judgement normal, mood normal. [] Current Patient Data: Labs: Laboratory Tests Test 03/25/22 15:00 Influenza Type A Antigen Negative (NEGATIVE) Influenza Type B Antigen Negative (NEGATIVE) SARS-CoV-2 Antigen (Rapid) Negative (NEGATIVE) Vital Signs: Vital Signs Date Time Temp Pulse Resp B/P (MAP) Pulse Ox O2 Delivery O2 Flow Rate FiO2 03/25/22 14:45 97.5 85 18 129/63 (85) 97 Room Air 97.5 EKG: EKG: [] Radiology/Procedures: Radiology/Procedures: []PROCEDURE: PORTABLE CHEST 1V Single view chest dated 03/25/2022 3:23 PM: COMPARISON: None Clinical Indication: Cough. Findings: Single upright portable exam of the chest was performed. Heart size and mediastinal contours are within normal limits. Lungs are clear. No consolidation or pleural effusion. No pneumothorax. IMPRESSION: No acute radiographic abnormality. Electronically signed by: Los Boykin MD (03/25/2022 3:24 PM) [facility] DICTATED and SIGNED BY: LOS BOYKIN MD DATE: 03/25/22 1523 Course & Med Decision Making: Course & Med Decision Making Pertinent Labs and Imaging studies reviewed. (See chart for details) This is a 51-year-old female patient presenting to the ED today complaining of a sore throat, postnasal drip, and a cough since yesterday, also complaining of body aches, Chest x-ray is negative for any acute findings, negative rapid strep, negative influenza A&B test, negative rapid COVID test. Patient was discharged to home, supportive care measures recommended. Follow-up with primary care doctor in 1 week Chirag Disclaimer: Chirag Disclaimer: This electronic medical record was generated, in whole or in part, using a voice recognition dictation system. Departure Departure Impression: Primary Impression: URI (upper respiratory infection) Qualified Codes: J06.9 - Acute upper respiratory infection, unspecified Additional Impressions: Pharyngitis Qualified Codes: J02.9 - Acute pharyngitis, unspecified Cough Disposition: HOME / SELF CARE / HOMELESS Condition: STABLE Referrals: HANDY FUENTES DO (PCP) follow up with your doctor in one week Patient Instructions: Cough, Adult, Qytp-[id number], Upper Respiratory Infection, Adult, Altv-yl-[id number], Viral Pharyngitis Additional Instructions: You were evaluated in the emergency room for symptoms consistent of a viral il lness. Your chest x-ray is negative for any acute findings, your rapid influenza test is negative, your rapid COVID test is negative, your rapid strep test is negative. Rest, push fluids, maintain good hand hygien. Follow-up with your doctor in 1 week. Scripts Guaifenesin (MUCINEX) 600 Mg Tablet.er 1 TAB PO BID for cough for 10 Days, #20 TAB 0 Refills Prov: LINDA DENIS APRN 03/25/22 LINDA DENIS APRN March 25, 2022 16:08
== END 2022-03-25 16:15 | disposition home or self-care (01) ==
LOC: ER 14:42
DX: J06.9 Acute upper respiratory infection, unspecified (principal); J02.9 Acute pharyngitis, unspecified; Z20.822 Contact with and (suspected) exposure to COVID-19; R05.9 Cough, unspecified; J45.909 Unspecified asthma, uncomplicated; F31.9 Bipolar disorder, unspecified; E11.9 Type 2 diabetes mellitus without complications; E78.00 Pure hypercholesterolemia, unspecified; Z88.1 Allergy status to other antibiotic agents; Z88.8 Allergy status to other drugs, medicaments and biological substances
CPT/HCPCS: 71045; 87070; 87428; 87880; 99284